=== PATIENT | male | born 1945 | race Caucasian/White ===

== ENCOUNTER 2017-07-12 09:44 | Outpatient (CLI) | payer MEDICARE, BC ==
[2017-07-12 10:28] LABS: Anion Gap 13 mmol/L (10-20); BUN (Urea Nitrogen) 59 mg/dL (8.4-25.7); Calc. Creatinine Clearance 0 mL/min (70-130); Calcium 10.5 mg/dL (7.8-10.44); Carbon Dioxide 25 mmol/L (23-31); Chloride 105 mmol/L (98-107); Estimated GFR-MDRD 24
--- NOTE | 2017-07-12 15:19 | CT ---
ABDOMEN CT WITHOUT CONTRAST PELVIC CT WITHOUT CONTRAST: Date: 07/12/17 HISTORY: Possible renal neoplasm. 2 year follow-up of kidney cancer. Right nephrectomy. COMPARISON: 06/17/16. TECHNIQUE: An abdomen and pelvic CT are performed without contrast. FINDINGS: ABDOMEN CT: Lung bases are clear. Normal cardiac size. Coronary artery calcifications are noted. The descending thoracic aorta and abdo delbert aorta demonstrate atherosclerosis. No periaortic fat stranding. No evidence of dilatation. Gallbladder is unremarkable. Limited evaluation of the solid organs due to lack of IV contrast. No solid organ abnormality. Mild a trophy of the pancreas. Nonspecific calcification of the tail of the pancreas, likely associated with atherosclerosis of the splenic artery. No gastrohepatic, retrocrural, or periportal lymphadenopathy. No mesenteric mass, lymphadenopathy, free air, or free fluid. No evidence of significant periaortic o r aortocaval lymphadenopathy. Limited evaluation of the alimentary canal due to lack of oral contrast. No evidence of bowel obstruc tion. Ileocecal junction is normal. Appendix appears to be surgically absent. Scattered diverticulosi s, without evidence of diverticulitis. No colon obstruction. Surgically absent right kidney. Residual surgical clips are noted. With regard to the left kidney, th ere is an exophytic hypodensity emanating from the upper pole, measuring 4.4 x 3.8 cm, with an attenu ation coefficient of 13 Hounsfield units suggesting a cyst. No evidence of left-sided obstructive uro billy. PELVIC CT: No mass, lymphadenopathy, free air, or free fluid. There are no lytic or blastic lesions in the osseo us structures. Stable left inguinal hernia containing fat. IMPRESSION: 1. Postsurgical changes, compatible with right nephrectomy. 2. Stable exophytic cyst emanating from the upper pole of left kidney. No evidence of left-sided obs tructive uropathy. 3. Diverticulosis. No evidence of diverticulitis. POS: [facility]
== END 2017-07-12 09:45 | disposition home or self-care (01) ==
LOC: CT 09:44
PROVIDERS: ATTEND Urology
DX: C64.1 Malignant neoplasm of right kidney, except renal pelvis (principal); E11.22 Type 2 diabetes mellitus with diabetic chronic kidney disease; N18.9 Chronic kidney disease, unspecified; N28.1 Cyst of kidney, acquired; K57.90 Diverticulosis of intestine, part unspecified, without perforation or abscess without bleeding; Z90.5 Acquired absence of kidney
CPT/HCPCS: 36415; 74176; 80048

== ENCOUNTER 2017-12-02 19:17 | Emergency (ER) | payer MEDICARE, BC ==
--- NOTE | 2017-12-02 19:57 | CT ---
CT OF BRAIN PERFORMED WITHOUT CONTRAST ENHANCEMENT: 12/02/17 HISTORY: Fall with head injury. There is generalized ventricular and sulcal prominence. There is decreased attenuation to the periven tricular white matter consistent with some chronic white matter change. There is no signs of intracer ebral hemorrhage or extra-axial fluid collections. The mastoid air cells and visualized sinuses are c lear. IMPRESSION: No acute intracranial abnormalities. POS: [facility]
--- NOTE | 2017-12-02 20:28 | CT ---
CT OF CERVICAL SPINE PERFORMED WITHOUT CONTRAST ENHANCEMENT: HISTORY: Neck pain status post fall. The vertebral bodies are normal in height. There is disc narrowing at C5-6. There are degenerative fa cet changes. The facets are in normal alignment. At the C5-6 level, there are symmetric left sided un covertebral changes with fairly pronounced left foraminal narrowing. There is mild right foraminal na rrowing and mild canal stenosis. There is no CT evidence for fracture. The lung apices are clear. The re is carotid bulb calcifications noted. IMPRESSION: No CT evidence of fracture. POS: [facility]
== END 2017-12-02 21:22 | disposition home or self-care (01) ==
LOC: ERS 19:17
DX: S09.90XA Unspecified injury of head, initial encounter (principal); S60.413A Abrasion of left middle finger, initial encounter; I25.2 Old myocardial infarction; E11.9 Type 2 diabetes mellitus without complications; E78.5 Hyperlipidemia, unspecified; I10 Essential (primary) hypertension; W17.89XA Other fall from one level to another, initial encounter
CPT/HCPCS: 70450; 72125; 93005

== ENCOUNTER 2018-02-28 10:19 | Outpatient (CLI) | payer MEDICARE, BC ==
[2018-02-28 10:50] LABS: Mean Corpuscular HGB CONC 34.2 g/dL (32.0-36.0); Mean Corpuscular Volume 99.6 fL (78.0-98.0); Mean Platelet Volume 6.6 fL (7.4-10.4); Platelet Count 189 thou/uL (130-400); RBC Distribution Width 12.2 % (11.5-14.5); Red Blood Cell (RBC) Count 3.82 mill/uL (4.70-6.10); White Blood Cell (WBC) Count 5.7 thou/uL (4.8-10.8)
[2018-02-28 10:58] LABS: Bilirubin Negative (Negative); Blood, Urine Negative (Negative); Clarity CLEAR (Clear); Glucose, Urine (Dipstick) Negative (Negative); Leukocyte Negative (Negative); Nitrite Negative (Negative); Protein, Urine (Dipstick) 100 mg/dL (Neg-Trace); Specific Gravity, Urine 1.011 (1.002-1.036); Urobilinogen 0.2 mg/dL (0.2-1.0); pH, Urine 6.5 (5.0-9.0)
[2018-02-28 10:59] LABS: Bacteria/HPF None Seen HPF (None Seen); Hyaline Casts/LPF 0-3 HYALINE CAST LPF (0-3 Hyaline); RBC/HPF None Seen HPF (0-3); Squamous Epithelial None Seen HPF (0-3); WBC/HPF None Seen HPF (0-3)
[2018-02-28 11:08] LABS: Creatinine, Urine 51.78 mg/dL (63-166); Microalbumin Urine 34.1 mg/dL (0.5-50.0); Microalbumin/Creat Ratio 658.6 mg/g (Less than 30)
[2018-02-28 11:37] LABS: ALT (SGPT) 28 U/L (8-55); AST (SGOT) 20 U/L (5-34); Albumin 4.2 g/dL (3.4-4.8); Alkaline Phosphatase 68 U/L (40-150); Anion Gap 16 mmol/L (10-20); BUN (Urea Nitrogen) 66 mg/dL (8.4-25.7); BUN/Creatinine Ratio 22.84; Bilirubin, Total 0.5 mg/dL (0.2-1.2); Calc. Creatinine Clearance 0 mL/min (70-130); Calcium 9.4 mg/dL (7.8-10.44); Carbon Dioxide 21 mmol/L (23-31); Cardiac Risk 2.7 (Less than 4.5); Chloride 106 mmol/L (98-107); Cholesterol 147 mg/dl (< 200 Desired); Estimated GFR-MDRD 21; Globulin 2.3 g/dL (2.4-3.5); Glucose 83 mg/dL (83-110); HDL Cholesterol 55 mg/dL (>60 Neg Risk); LDL Cholesterol, Calculated 73 mg/dL; Phosphorus 3.9 mg/dL (2.3-4.7); Potassium 4.7 mmol/L (3.5-5.1); Protein, Total 6.5 g/dL (5.8-8.1); Sodium 138 mmol/L (136-145); Triglycerides 94 mg/dL (Less than 150); Uric Acid 9.1 mg/dL (3.5-7.2)
--- NOTE | 2018-02-28 12:20 | RAD ---
PA AND LATERAL VIEWS CHEST: Date: 02/28/18 HISTORY: Chronic renal disease, malignant neoplasm of right kidney. FINDINGS: Comparison made with exam of 02/24/17. The heart size is borderline. No lobar consolidation, pneumothorax, mass, or pleural effusion seen. T here are degenerative changes in the spine. IMPRESSION: Stable exam. No acute process. POS: [facility]
== END 2018-02-28 10:20 | disposition home or self-care (01) ==
LOC: RAD 10:19
PROVIDERS: ATTEND Internal Medicine Cardiovascular Disease
DX: I12.9 Hypertensive chronic kidney disease with stage 1 through stage 4 chronic kidney disease, or unspecified chronic kidney disease (principal); E11.22 Type 2 diabetes mellitus with diabetic chronic kidney disease; N18.9 Chronic kidney disease, unspecified; I25.10 Atherosclerotic heart disease of native coronary artery without angina pectoris; R80.9 Proteinuria, unspecified; E78.00 Pure hypercholesterolemia, unspecified; E83.52 Hypercalcemia; E78.5 Hyperlipidemia, unspecified; M10.9 Gout, unspecified; M19.90 Unspecified osteoarthritis, unspecified site
CPT/HCPCS: 36415; 71046; 80053; 80061; 80069; 81001; 82043; 84550; 85027; 87086

== ENCOUNTER 2018-09-19 10:01 | Outpatient (CLI) | payer MEDICARE, BC ==
[2018-09-19 10:50] LABS: Hemoglobin 12.9 g/dL (14.0-18.0); Mean Corpuscular HGB CONC 32.7 g/dL (32.0-36.0); Mean Corpuscular Hemoglobin 33.4 pg (27.0-31.0); Platelet Count 250 thou/uL (130-400); RBC Distribution Width 11.6 % (11.5-14.5); Red Blood Cell (RBC) Count 3.87 mill/uL (4.70-6.10); White Blood Cell (WBC) Count 6.6 thou/uL (4.8-10.8)
[2018-09-19 11:18] LABS: ALT (SGPT) 23 U/L (8-55); AST (SGOT) 17 U/L (5-34); Albumin 4.2 g/dL (3.4-4.8); Alkaline Phosphatase 77 U/L (40-150); Anion Gap 14 mmol/L (10-20); BUN (Urea Nitrogen) 70 mg/dL (8.4-25.7); BUN/Creatinine Ratio 26.32; Bilirubin Negative (Negative); Bilirubin, Total 0.6 mg/dL (0.2-1.2); Blood, Urine Negative (Negative); Calc. Creatinine Clearance 0 mL/min (70-130); Calcium 10.4 mg/dL (7.8-10.44); Carbon Dioxide 26 mmol/L (23-31); Cardiac Risk 2.5 (Less than 4.5); Chloride 105 mmol/L (98-107); Cholesterol 117 mg/dl (< 200 Desired); Clarity CLEAR (Clear); Estimated GFR-MDRD 24; Globulin 3.4 g/dL (2.4-3.5); Glucose 69 mg/dL (83-110); Glucose, Urine (Dipstick) Negative (Negative); HDL Cholesterol 47 mg/dL (>60 Neg Risk); LDL Cholesterol, Calculated 56 mg/dL; Leukocyte Negative (Negative); Nitrite Negative (Negative); Phosphorus 3.7 mg/dL (2.3-4.7); Potassium 5.3 mmol/L (3.5-5.1); Protein, Total 7.6 g/dL (5.8-8.1); Protein, Urine (Dipstick) 30 mg/dL (Neg-Trace); Sodium 140 mmol/L (136-145); Specific Gravity, Urine 1.011 (1.002-1.036); Triglycerides 68 mg/dL (Less than 150); Uric Acid 8.3 mg/dL (3.5-7.2); Urobilinogen 0.2 mg/dL (0.2-1.0)
[2018-09-19 11:22] LABS: Bacteria/HPF None Seen HPF (None Seen); Hyaline Casts/LPF 0-3 HYALINE CAST LPF (0-3 Hyaline); RBC/HPF 0-3 HPF (0-3); Squamous Epithelial None Seen HPF (0-3); WBC/HPF None Seen HPF (0-3)
--- NOTE | 2018-09-19 11:28 | RAD ---
CHEST TWO VIEWS: HISTORY: Malignant neoplasm of the right kidney. COMPARISON: 02/28/2018 FINDINGS: Two views of the chest show a normal sized cardiomediastinal silhouette. Apparent opacity is seen on the lateral radiograph, at the posterior aspect of the thorax. This is not seen on the anterior rad iograph but could represent a left retrocardiac infiltrate. No pleural effusion is seen. IMPRESSION: Possible left retrocardiac infiltrate. POS: [facility]
[2018-09-19 11:53] LABS: Creatinine, Urine 35.25 mg/dL (63-166)
[2018-09-19 12:32] LABS: Hemoglobin A1c 7.9 % (4.0-6.0)
== END 2018-09-19 10:02 | disposition home or self-care (01) ==
LOC: RAD 10:01
PROVIDERS: ATTEND Urology
DX: C64.1 Malignant neoplasm of right kidney, except renal pelvis (principal); N28.1 Cyst of kidney, acquired; E11.22 Type 2 diabetes mellitus with diabetic chronic kidney disease; R80.9 Proteinuria, unspecified; I13.10 Hypertensive heart and chronic kidney disease without heart failure, with stage 1 through stage 4 chronic kidney disease, or unspecified chronic kidney disease; E78.5 Hyperlipidemia, unspecified; M19.90 Unspecified osteoarthritis, unspecified site; E83.52 Hypercalcemia; M10.9 Gout, unspecified; N18.3 Chronic kidney disease, stage 3 (moderate); E78.00 Pure hypercholesterolemia, unspecified
CPT/HCPCS: 71046; 80053; 80061; 80069; 81003; 81015; 82570; 83036; 84156; 84550; 85027; 87086

== ENCOUNTER 2018-09-29 14:35 | Outpatient (CLI) | payer MEDICARE, BC ==
[2018-09-29] MEDS ORDERED: Sodium Chloride 0.9% 15 ML NEB ONE (19:46)
--- NOTE | 2018-09-29 23:31 | HP ---
HISTORY OF PRESENT ILLNESS: Mr. Jovani Pichardo is a very pleasant 72-year-old gentleman, accompanied by his spouse who [facility] for evaluation of 2 ulcerations of the right lower leg. The patient states that he has experienced the presence of venous ulcerations on an intermittent basis for the past 4 years. He states that the ulcerations now present were first noted "weeks" ago. The patient denies any history of trauma precipitating the development of the ulcerations. He states that he has been treating the 2 ulcerations of his right lower leg with the application of Neosporin alone without a secondary dressing. The patient states that he was seen by Dr. Suazo for neuropathy, and at this time, the patient was referred to the [facility] for further evaluation and treatment of his right lower leg wounds. The patient has undergone venous ablation on the left by Dr. Alberts. The patient states that his venous and arterial circulation on the right was evaluated by Dr. Alberts approximately 1 year ago. PAST MEDICAL HISTORY: 1. Diabetes mellitus. 2. Hypertension. 3. Coronary artery disease. 4. Glaucoma. 5. Chronic renal insufficiency. 6. Gout. PAST SURGICAL HISTORY: 1. Appendectomy. 2. Corneal transplant. 3. Right radical nephrectomy. MEDICATIONS: 1. Aspirin 81 mg. 2. Multivitamin. 3. Nitro sublingual. 4. Lipitor. 5. Zetia. 6. Lovaza. 7. Allopurinol. 8. Gabapentin. 9. Silodosin. 10. Lantus. 11. NovoLog. 12. Starlix. ALLERGIES: NO KNOWN DIAGNOSED ALLERGIES. SOCIAL HISTORY: Social history is negative for tobacco use. The patient admits to the consumption of 7 drinks per week for the past 50 years. FAMILY HISTORY: Family history is negative for diabetes mellitus or coronary artery disease. PHYSICAL EXAMINATION: VITAL SIGNS: Temperature 97.6, pulse 69, respirations 18, blood pressure 188/78. Accu-Chek 68. GENERAL: A 72-year-old gentleman, sitting on chair in examination room, in no acute distress. HEENT: Normocephalic and atraumatic. NECK: No nuchal rigidity. CHEST: Clear to auscultation. CV: Regular rate and rhythm. ABDOMEN: Soft. EXTREMITIES: Two ulcerations of the right lower leg are present which measure approximately 0.8 x 0.6 cm and 1.9 x 0.8 cm. No purulent drainage is associated with either wound. No cellulitis of the right lower leg is appreciated. No maceration of the skin of the periwound of either wound is noted. A dorsalis pedis pulse or posterior tibial pulse is not palpable on the right. Both pulses are however audible by Doppler. Pedal edema as well as edema of the right lower leg is present on exam today. NEUROLOGIC: Grossly nonfocal. ASSESSMENT AND PLAN: 1. Chronic venous hypertension with ulceration. Silverlon, an ABD, Webril, and the 3M Coban 2-Layer Compression System will be applied to the ulcerations today without tension. The patient is to return to the [facility] for dressing change in 1 week. I will see Mr. Pichardo again in 2 weeks. No antibiotics will be prescribed today based upon the appearance of the wounds. At the time of the patient's dressing change in 1 week, the 3M Coban 2-Layer Compression System will again be applied without tension. 2. Diabetes mellitus. The patient's Accu-Chek in clinic today is 68. The patient has been told that for optimal wound healing, his blood glucoses should remain below 150. 3. Hypertension. 4. Coronary artery disease. 5. Glaucoma. 6. Chronic renal insufficiency. 7. Gout. Job ID: [id number]
== END 2018-09-29 14:36 | disposition home or self-care (01) ==
LOC: WCC 14:35
PROVIDERS: ATTEND Family Medicine
DX: I87.311 Chronic venous hypertension (idiopathic) with ulcer of right lower extremity (principal); E11.622 Type 2 diabetes mellitus with other skin ulcer; L97.919 Non-pressure chronic ulcer of unspecified part of right lower leg with unspecified severity; I12.9 Hypertensive chronic kidney disease with stage 1 through stage 4 chronic kidney disease, or unspecified chronic kidney disease; E11.22 Type 2 diabetes mellitus with diabetic chronic kidney disease; I25.10 Atherosclerotic heart disease of native coronary artery without angina pectoris; N18.9 Chronic kidney disease, unspecified; M10.9 Gout, unspecified; E11.39 Type 2 diabetes mellitus with other diabetic ophthalmic complication; H42 Glaucoma in diseases classified elsewhere
CPT/HCPCS: 29581; 97139; G0463; 99203; A4218

== ENCOUNTER 2018-10-04 13:52 | Outpatient (CLI) | payer MEDICARE, BC ==
--- NOTE | 2018-10-04 16:14 | MRI ---
EXAM: LUMBAR SPINE MRI WITHOUT IV CONTRAST: History: I73.9 - claudication. Low back pain on the right. FINDINGS: Conus medullaris region is unremarkable. Generalized disc desiccation changes with ligament and facet hypertrophic changes. Possible superior lateral left renal cyst, incompletely seen and incompletely evaluated. T12-L1: Disc desiccation change with a small central annular fissure and mild central canal and later al recess stenosis. L1-2: There is a central and left central annular fissure with mild thinning of the lateral recesses without significant foraminal stenosis. L2-3: There is a very large extruded disc herniation at L2-3 with severe central canal and lateral re cess stenosis with mild left foraminal stenosis and right foraminal stenosis. L3-4: Diffuse disc bulging with slight thinning of the lateral recess and mild bilateral foraminal st enosis. L4-5: Mild central protrusion. Mild lateral recess stenosis. No significant foraminal stenosis. L5-S1: Small central protrusion. No significant canal or lateral recess stenosis. Some mixed including some type I endplate changes at L2-3. IMPRESSION: Very large extruded disc herniation at L2-3 with severe central canal and lateral recess stenosis as well as some type I implant changes. Other changes as above. POS: [facility]
--- NOTE | 2018-10-04 16:17 | RAD ---
PA AND LATERAL CHEST: History: Malignant neoplasm right kidney. Chronic renal disease. FINDINGS: Comparison made with exam of 09-19-18. Mild posterior left retrocardiac infiltrate is again seen. The heart size is normal. No pneumothorace s or large effusions are identified. IMPRESSION: Stable exam. POS: [facility]
== END 2018-10-04 13:53 | disposition home or self-care (01) ==
LOC: BICMRI 13:52
PROVIDERS: ATTEND Psychiatry & Neurology Neurology
DX: I73.9 Peripheral vascular disease, unspecified (principal); C64.1 Malignant neoplasm of right kidney, except renal pelvis; N18.9 Chronic kidney disease, unspecified; M51.26 Other intervertebral disc displacement, lumbar region; M48.061 Spinal stenosis, lumbar region without neurogenic claudication
CPT/HCPCS: 71046; 72148

== ENCOUNTER 2018-10-04 15:50 | Outpatient (CLI) | payer MEDICARE, BC ==
[2018-10-04] MEDS ORDERED: Sodium Chloride 0.9% 15 ML NEB ONE (17:53)
== END 2018-10-04 15:51 | disposition home or self-care (01) ==
LOC: WCC 15:50
PROVIDERS: ATTEND Family Medicine
DX: I87.311 Chronic venous hypertension (idiopathic) with ulcer of right lower extremity (principal); L97.919 Non-pressure chronic ulcer of unspecified part of right lower leg with unspecified severity
CPT/HCPCS: 29581; A4218